=== PATIENT | female | born 1935 | race Caucasian/White ===

== ENCOUNTER 2016-09-05 18:46 | Emergency (ER) | payer MEDICARE, OTHER ==
[~2016-09-05 18:46] MED LIST: ASPI81TA81 PO; CARV12.52 PO; CLIN1CAP6 PO; LISI10TA3 PO; MEDR4PAK PO; ULTR50TA5 PO; ZOLO50TA PO
== END 2016-09-05 19:47 | disposition left against medical advice (07) ==
LOC: NED 18:46
DX: R60.9 Edema, unspecified (principal); Z53.21 Procedure and treatment not carried out due to patient leaving prior to being seen by health care provider
CPT/HCPCS: 99281